=== PATIENT | female | born 1955 | race Caucasian/White ===

== ENCOUNTER 2018-01-07 10:47 | Outpatient (CLI) | payer OTHER ==
[2018-01-08 09:08] LABS: HEPATITIS B SURFACE ANTIGEN Negative (Negative)
[2018-01-08 10:13] LABS: VARICELLA IGG ANTIBODY 288 index (Immune >165)
== END 2018-01-07 22:05 | disposition home or self-care (01) ==
LOC: MLB 10:47
PROVIDERS: ATTEND Family Medicine
DX: Z02.1 Encounter for pre-employment examination (principal)
CPT/HCPCS: 36415; 86735; 86762; 86765; 86787; 87340